=== PATIENT | female | born 1965 | race Caucasian/White ===

== ENCOUNTER 2017-02-11 19:33 | Emergency (ER) | payer SELFPAY ==
[2017-02-11] MEDS ORDERED: IPRATROPIUM-ALBUTEROL 3 ML NEB INHALATION STA (21:06)
[2017-02-11] MEDS ORDERED: DEXAMETHASONE SOD PHOSPHATE 10 MG/ML 1 ML VIAL IM STA (21:06)
[2017-02-11] MEDS ORDERED: ACETAMINOPHEN TAB 500 MG TAB PO STA (21:06)
--- NOTE | 2017-02-11 21:17 | ED ---
URI HPI - General Chief Complaint: Upper Respiratory Infection Stated Complaint: Diff Breathing Time Seen by Provider: 02/11/17 21:01 Source: patient, RN notes reviewed Mode of arrival: wheelchair Limitations: no limitations - History of Present Illness Initial Comments: 52-year-old female presents with two-week history of cough and difficulty breathing. Patient is a current smoker. No history of asthma or COPD. She states over the past 2 weeks she has had intermittent fever and chills. She has had a dry cough. Also complains of rhinorrhea and nasal congestion. She has been taking [id number] cough and cold relief with minimal effect. Patient also reports several episodes of diarrhea. No vomiting. No central chest pain. She is complaining of right-sided rib pain which is worse with cough. - Related Data Home Medications Medication Instructions Recorded Confirmed Ascorbic Acid [Vitamin C] 500 mg PO DAILY 02/11/17 02/11/17 Phenylephrine/Dm/Acetaminop/GG 2 tab PO Q4HR PRN 02/11/17 02/11/17 [Tylenol Cold-Flu Severe Caplet] guaiFENesin [Mucinex] 600 mg PO Q12H PRN 02/11/17 02/11/17 Previous Rx's Medication Instructions Recorded Albuterol Inhaler [Ventolin Hfa 1 - 2 puff INHALATION Q4HR PRN #1 02/11/17 Inhaler] inhaler Azithromycin [Zithromax Z-pack] 0 mg PO DIRECTED #6 tab 02/11/17 HYDROcodone/APAP 5-325MG [[place] 1 tab PO Q6HR PRN #12 tab 02/11/17 5-325] Nicotine 14Mg/24Hr Patch [Habitrol] 1 patch TRANSDERM DAILY #14 patch 02/11/17 predniSONE 50 mg PO DAILY #5 tab 02/11/17 Allergies Allergy/AdvReac Type Severity Reaction Status Date / Time No Known Allergies Allergy Verified 02/11/17 21:21 Review of Systems ROS Statement: Those systems with pertinent positive or pertinent negative responses have been documented in the HPI. ROS Other: All systems not noted in ROS Statement are negative. Past Medical History Past Medical History: No Reported History History of Any Multi-Drug Resistant Organisms: MRSA Date of last positivie culture/infection: 1989 MDRO Source:: thigh Past Surgical History: No Surgical Hx Reported Past Psychological History: No Psychological Hx Reported Smoking Status: Current every day smoker Past Alcohol Use History: None Reported Past Drug Use History: None Reported General Exam Limitations: no limitations General appearance: alert, in no apparent distress Head exam: Present: atraumatic, normocephalic Eye exam: Present: normal appearance, PERRL ENT exam: Present: normal exam, normal oropharynx, mucous membranes moist, other (Bilateral nasal congestion) Neck exam: Present: normal inspection. Absent: tenderness Respiratory exam: Present: other (Course breath sounds bilaterally, good air entry). Absent: respiratory distress Cardiovascular Exam: Present: regular rate, normal rhythm GI/Abdominal exam: Present: soft. Absent: distended, tenderness Extremities exam: Present: normal inspection, normal capillary refill. Absent: pedal edema Neurological exam: Present: alert, oriented X3, CN II-XII intact. Absent: motor sensory deficit Psychiatric exam: Present: normal affect, normal mood Skin exam: Present: warm, dry, intact. Absent: cyanosis, diaphoretic Course Vital Signs 02/11/17 02/11/17 02/11/17 20:00 20:56 21:29 Temperature 99.4 F Pulse Rate 85 84 Respiratory 20 20 Rate Blood Pressure 129/66 O2 Sat by Pulse 96 Oximetry 02/11/17 21:39 Temperature Pulse Rate 88 Respiratory Rate Blood Pressure O2 Sat by Pulse Oximetry - Reevaluation(s) Reevaluation #1: 02/11/17 22:09 On reevaluation, patient is feeling much better, increased air entry, and clearing of breath sounds. Medical Decision Making - Medical Decision Making 52-year-old female presents with 2 weeks cough and fever. Patient also has URI symptoms. Influenza is negative. Chest x-ray shows bilateral patchy infiltrate consistent with pneumonia. Patient will be treated for. He acquired pneumonia. She also given steroids and an albuterol inhaler. She is encouraged to quit smoking. She is also given a nicotine patch. Discussion about smoking cessation 3.1 minutes. Patient is given strict return parameters. She will return with worsening symptoms, or fever. - Lab Data Lab Results 02/11/17 Range/Units 21:15 Influenza Type A RNA Not Detected (Not Detectd) Influenza Type B (PCR) Not Detected (Not Detectd) Disposition Clinical Impression: Community acquired bacterial pneumonia Disposition: HOME SELF-CARE Condition: Good Instructions: Pneumonia (ED) Additional Instructions: Follow-up with primary care physician, return to the emergency department with worsening symptoms. Prescriptions: Albuterol Inhaler [Ventolin Hfa Inhaler] 1 - 2 puff INHALATION Q4HR PRN #1 inhaler PRN Reason: Shortness Of Breath Azithromycin [Zithromax Z-pack] 0 mg PO DIRECTED #6 tab HYDROcodone/APAP 5-325MG [[place] 5-325] 1 tab PO Q6HR PRN #12 tab PRN Reason: Pain Nicotine 14Mg/24Hr Patch [Habitrol] 1 patch TRANSDERM DAILY #14 patch predniSONE 50 mg PO DAILY #5 tab Referrals: Nonstaff,Physician [Primary Care Provider] - 1-2 days Farrukh Alvarenga MD [REFERRING] - 1-2 days Time of Disposition: 22:12
--- NOTE | 2017-02-11 21:42 | XR ---
EXAMINATION TYPE: XR chest 2V DATE OF EXAM: 02/11/2017 COMPARISON: NONE INDICATION: Cough TECHNIQUE: Frontal and lateral views of the chest are obtained. FINDINGS: The heart size is normal. The pulmonary vasculature is normal. There are patchy infiltrates within the bilateral lung terry. Pleural plaquing is not excluded. Juan F elate for infectious etiologies. Follow-up to clearing are recommended.. IMPRESSION: 1. Patchy infiltrates appear to be present in the mid lungs bilaterally. Some left lingular infiltrat e may be present. Correlate for infectious etiologies such as pneumonia. Follow-up to clearing is rec ommended.
[2017-02-11 22:21] VITALS: BP 139/65; PULSE 58; RESP 18; TEMP 98.8
== END 2017-02-11 22:19 | disposition home or self-care (01) ==
LOC: EC 19:33
DX: J15.9 Unspecified bacterial pneumonia (principal); F17.200 Nicotine dependence, unspecified, uncomplicated; Z86.14 Personal history of Methicillin resistant Staphylococcus aureus infection; Z79.899 Other long term (current) drug therapy
CPT/HCPCS: 94640; 87502; 71020; 99284; 96372; J1100